=== PATIENT | female | born 1960 | race Two or more races ===

== ENCOUNTER 2020-04-16 23:28 | Emergency (ER) | payer OTHER ==
[~2020-04-16] VITALS: Ht 157.5 cm; Wt 66.0 kg
[2020-04-17] MEDS ORDERED: PRED50TA PO (00:01)
--- NOTE | 2020-04-17 00:02 | PHYS DOC ---
General Adult EDM: Chief Complaint: SKIN RASH/ABSCESS HPI: HPI: 59-year-old female presents with diffuse rash all over her body. The patient was doing her normal activities today. This included weeding her garden. The patient does not believe she was exposed to anything new or different today. Around 1 PM she started to develop a rash which are urticaria on her arms. This spread to her legs, abdomen, chest, back, face and even the groin region. She took 50 mg of Benadryl 3 hours ago and fell asleep for a little while, but woke up with intense itching. She decided she should come to the emergency room. Patient has no known allergies. She did not have any new ingestions or cosmetic products today. Her does not have a rash. She denies fever or chills. She is having no difficulty breathing or swallowing. Review of Systems: Review of Systems: Constitutional: Denies fever or chills Eyes: Denies change in visual acuity HENT: Denies nasal congestion or sore throat Respiratory: Denies cough or shortness of breath Cardiovascular: Denies chest pain or edema GI: Denies abdominal pain, nausea, vomiting, bloody stools or diarrhea : Denies dysuria Musculoskeletal: Denies back pain or joint pain Integument: Urticaria all over her body Neurologic: Denies headache, focal weakness or sensory changes Endocrine: Denies polyuria or polydipsia Lymphatic: Denies swollen glands Psychiatric: Denies depression or anxiety Heart Score: Risk Factors: Risk Factors: DM, Current or recent (<one month) smoker, HTN, HLP, family history of CAD, obesity. Risk Scores: Score 0 - 3: 2.5% MACE over next 6 weeks - Discharge Home Score 4 - 6: 20.3% MACE over next 6 weeks - Admit for Clinical Observation Score 7 - 10: 72.7% MACE over next 6 weeks - Early Invasive Strategies Physical Exam: PE: Constitutional: Well developed, well nourished, no acute distress, non-toxic appearance. [] HENT: Normocephalic, atraumatic, bilateral external ears normal, oropharynx moist, no oral exudates, nose normal. [] Eyes: PERRLA, EOMI, conjunctiva normal, no discharge. [] Neck: Normal range of motion, no tenderness, supple, no stridor. [] Cardiovascular:Heart rate regular rhythm, no murmur [] Lungs & Thorax: Bilateral breath sounds clear to auscultation [] Abdomen: Bowel sounds normal, soft, no tenderness, no masses, no pulsatile masses. [] Skin: Urticaria all over the patient's body [] Back: No tenderness, no CVA tenderness. [] Extremities: No tenderness, no cyanosis, no clubbing, ROM intact, no edema. [] Neurologic: Alert and oriented X 3, normal motor function, normal sensory function, no focal deficits noted. [] Psychologic: Affect normal, judgement normal, mood normal. [] EKG: EKG: [] Radiology/Procedures: Radiology/Procedures: [] Course & Med Decision Making: Course & Med Decision Making Pertinent Labs and Imaging studies reviewed. (See chart for details) Patient appears to be having a systemic reaction to something. Neither the patient or I are sure what it might be. I will treat the patient with 10 mg of Decadron IM in the emergency room. She will take additional Benadryl after she gets home as needed. I will also give her a prescription for 3 more days of 50 mg of prednisone daily. She is stable for discharge at this time. [] Dragon Disclaimer: Dragon Disclaimer: This electronic medical record was generated, in whole or in part, using a voice recognition dictation system. Departure Departure: Impression: Primary Impression: Urticaria Additional Impression: Allergic reaction Disposition: HOME/RESIDENCE PRIOR TO ADM Condition: STABLE Referrals: MANDA MOJICA (PCP) Patient Instructions: Insect Sting Allergy Scripts Prednisone (PREDNISONE) 50 Mg Tablet 1 TAB PO DAILY for allergic reaction for 3 Days, #3 TAB start @ 1700 hrs 04/17/2020 Prov: FREDDIE CLARK DO 04/17/20 Justification of Admission: Justification of Admission: Justification of Admission Dx: N/A FREDDIE CLARK DO Apr 17, 2020 00:02
[2020-04-17 00:20] VITALS: BP 142/87
[2020-04-17] MEDS ORDERED: DEXAMETHASONE SOD PHOS 10 MG/ML VIAL. IM ONE (00:30)
== END 2020-04-17 00:20 | disposition home or self-care (01) ==
LOC: ER 23:28
DX: L50.0 Allergic urticaria (principal)
CPT/HCPCS: 96372; 99283; J1100